=== PATIENT | male | born 1985 | race Caucasian/White ===

== ENCOUNTER 2023-10-04 08:14 | Emergency (ER) | payer SELFPAY | END 2023-10-04 09:01 | disposition home or self-care (01) | LOC: BURERS 08:14 | DX: S63.502A Unspecified sprain of left wrist, initial encounter (principal); S63.642A Sprain of metacarpophalangeal joint of left thumb, initial encounter; F17.210 Nicotine dependence, cigarettes, uncomplicated; V80.010A Animal-rider injured by fall from or being thrown from horse in noncollision accident, initial encounter ==